=== PATIENT | male | born 1970 | race Two or more races ===

== ENCOUNTER 2022-01-26 21:08 | Inpatient (IN) | payer MEDICAID, OTHER ==
[~2022-01-26] VITALS: Ht 175.3 cm; Wt 113.5 kg
[2022-01-26] MEDS ORDERED: FUROSEMIDE 100 MG/10ML VIAL IV ONE (22:30)
[2022-01-26 22:44] LABS: Basophils # (auto) 0.2 10 ^3/uL (0-0.2); Basophils % (auto) 2.4 % (0.0-2.0); Eosinophils # (auto) 0.1 10 ^3/uL (0-0.8); Hematocrit 34.4 % (41.0-53.0); Hemoglobin 11.8 g/dL (13.5-17.5); Lymphocytes # (auto) 1.1 10 ^3/uL (0.4-5.4); Lymphocytes % (auto) 14.7 % (10.0-50.0); Mean Corpuscular Hemoglobin 29.7 pg (28.0-32.0); Mean Corpuscular Hgb Conc. 34.2 g/dL (32.0-36.0); Mean Corpuscular Volume 86.9 fL (80.0-100.0); Monocytes # (auto) 0.4 10 ^3/uL (0-1.3); Monocytes % (auto) 5.9 % (0.0-12.0); Neutrophils # (auto) 5.7 10 ^3/uL (1.6-8.6); Red Blood Cells 3.96 10^6/uL (4.5-5.90); Red Cell Distribution Width 14.4 % (11.8-14.3); White Blood Cell 7.5 10^3/uL (4.4-10.8)
[2022-01-26 23:08] LABS: Albumin 3.2 g/dL (3.4-5.0); BUN/Creatinine Ratio 16.2; Calcium 8.5 mg/dL (8.5-10.1); Magnesium 2.5 mg/dL (1.6-2.6); Potassium 4.2 mmol/L (3.5-5.1)
[2022-01-26 23:11] LABS: Bilirubin, Total 0.5 mg/dL (0.2-1.0); Total Protein 6.9 g/dL (6.4-8.2)
[2022-01-26 23:15] LABS: INR 1.13 (0.9-1.15); Partial Thromboplastin Time 28.7 sec (23.6-33.0)
[2022-01-27] MEDS ORDERED: ENOXAPARIN SOD 60 MG/0.6 ML SYRINGE SC ONE ×2 (00:15→00:46)
[2022-01-27 01:39] LABS: INR 1.16 (0.9-1.15); Partial Thromboplastin Time 28.5 sec (23.6-33.0)
[2022-01-27 02:13] LABS: Urine WBC None Seen /hpf (0 - 3)
[2022-01-27 03:07] LABS: Urine Bacteria NONE SEEN /hpf (None Seen); Urine Blood Negative /uL (Negative); Urine Specific Gravity 1.004 (1.001-1.035)
[2022-01-27] MEDS ORDERED: ONDANSETRON HCL 4 MG/2 ML VIAL IV PRN (04:00)
[2022-01-27] MEDS ORDERED: MORPHINE SULFATE INJECTION 2 MG/ML SYRG IV PRN ×2 (04:00→04:45)
[2022-01-27] MEDS ORDERED: ACETAMINOPHEN 325 MG TAB PO PRN (04:00)
[2022-01-27] MEDS ORDERED: HYDROcodone-ACET 5/325MG TAB PO PRN (04:00)
[2022-01-27] MEDS ORDERED: DOCUSATE SOD 100 MG CAP PO PRN (04:00)
[2022-01-27] MEDS ORDERED: NITROGLYCERIN 0.4 MG SL TAB SL PRN (04:45)
[2022-01-27 05:27] LABS: Basophils # (auto) 0.1 10 ^3/uL (0-0.2); Eosinophils # (auto) 0.1 10 ^3/uL (0-0.8); Eosinophils % (auto) 1.5 % (0.0-7.0); Hemoglobin 11.7 g/dL (13.5-17.5); Lymphocytes # (auto) 1.5 10 ^3/uL (0.4-5.4); Lymphocytes % (auto) 22.6 % (10.0-50.0); Mean Corpuscular Hemoglobin 29.5 pg (28.0-32.0); Mean Corpuscular Hgb Conc. 34.3 g/dL (32.0-36.0); Monocytes # (auto) 0.6 10 ^3/uL (0-1.3); Monocytes % (auto) 8.2 % (0.0-12.0); Neutrophils # (auto) 4.6 10 ^3/uL (1.6-8.6); Neutrophils % (auto) 66.7 % (37.0-80.0); Red Blood Cells 3.96 10^6/uL (4.5-5.90); Red Cell Distribution Width 14.6 % (11.8-14.3); White Blood Cell 6.8 10^3/uL (4.4-10.8)
[2022-01-27 05:41] LABS: Calcium 8.2 mg/dL (8.5-10.1); Potassium 3.7 mmol/L (3.5-5.1)
[2022-01-27 05:46] LABS: BUN/Creatinine Ratio 17.1; Bilirubin, Total 0.7 mg/dL (0.2-1.0); Total Protein 6.8 g/dL (6.4-8.2)
[2022-01-27] MEDS: SODIUM CHLOR 0.9% PF (SALINE LOCK) 10ML VIAL/SYR IV SCH ×3 (06:07→21:49)
[2022-01-27] MEDS: HEPARIN SODIUM (PORCINE) 5000 UNITS/ML 1ML VIAL SC SCH ×3 (07:18→21:51)
[2022-01-27 08:49] VITALS: BP 116/72
[2022-01-27] MEDS: ASPirin 81 mg TAB PO SCH (10:05)
[2022-01-27] MEDS: FAMOTIDINE (10MG/ML) 2ML VL IV SCH ×2 (10:05→21:49)
[2022-01-27] MEDS: FUROSEMIDE 40 MG/4 ML VIAL IV SCH (10:05)
[2022-01-27] MEDS: CARVEDILOL 3.125 MG TAB PO SCH ×2 (10:06→21:50)
[2022-01-27 13:00] VITALS: BP 101/70
[2022-01-27 16:42] VITALS: BP 114/76
[2022-01-27 21:11] VITALS: BP 122/79
[2022-01-27] MEDS: ATORVASTATIN 20 MG TAB PO SCH (21:50)
[2022-01-28 05:15] VITALS: BP 117/74
[2022-01-28 05:31] LABS: Basophils # (auto) 0.1 10 ^3/uL (0-0.2); Basophils % (auto) 0.9 % (0.0-2.0); Eosinophils # (auto) 0.2 10 ^3/uL (0-0.8); Eosinophils % (auto) 2.9 % (0.0-7.0); Hematocrit 38.1 % (41.0-53.0); Hemoglobin 12.8 g/dL (13.5-17.5); Lymphocytes # (auto) 1.7 10 ^3/uL (0.4-5.4); Lymphocytes % (auto) 23.3 % (10.0-50.0); Mean Corpuscular Hemoglobin 29.3 pg (28.0-32.0); Mean Corpuscular Hgb Conc. 33.8 g/dL (32.0-36.0); Mean Corpuscular Volume 86.7 fL (80.0-100.0); Monocytes # (auto) 0.5 10 ^3/uL (0-1.3); Monocytes % (auto) 6.5 % (0.0-12.0); Neutrophils # (auto) 4.9 10 ^3/uL (1.6-8.6); Neutrophils % (auto) 66.4 % (37.0-80.0); Red Blood Cells 4.39 10^6/uL (4.5-5.90); Red Cell Distribution Width 14.5 % (11.8-14.3); White Blood Cell 7.4 10^3/uL (4.4-10.8)
[2022-01-28 05:50] LABS: Potassium 4.4 mmol/L (3.5-5.1)
[2022-01-28] MEDS: HEPARIN SODIUM (PORCINE) 5000 UNITS/ML 1ML VIAL SC SCH (06:00)
[2022-01-28 06:04] LABS: Albumin 3.1 g/dL (3.4-5.0); BUN/Creatinine Ratio 19.1; Bilirubin, Total 0.6 mg/dL (0.2-1.0); Calcium 9.1 mg/dL (8.5-10.1); Total Protein 7.8 g/dL (6.4-8.2)
[2022-01-28] MEDS: SODIUM CHLOR 0.9% PF (SALINE LOCK) 10ML VIAL/SYR IV SCH ×3 (06:43→21:51)
[2022-01-28 08:30] VITALS: BP 122/88
[2022-01-28] MEDS: FUROSEMIDE 40 MG/4 ML VIAL IV SCH (10:00)
[2022-01-28] MEDS ORDERED: IOHEXOL 350 MG/ML 100ML IJ ONE (10:35)
[2022-01-28] MEDS ORDERED: LIDOCAINE 2%HCL (LOCAL ANESTH.) INJ 10ml MDV ONE (10:35)
[2022-01-28] MEDS ORDERED: SODIUM CHL 0.9% 0 ML ONE (10:48)
[2022-01-28] MEDS: CARVEDILOL 3.125 MG TAB PO SCH ×2 (10:48→21:51)
[2022-01-28] MEDS ORDERED: ANGIOMAX 250 MG VIAL IV ONE (10:48)
[2022-01-28] MEDS: ASPirin 81 mg TAB PO SCH (10:48)
[2022-01-28] MEDS: FAMOTIDINE (10MG/ML) 2ML VL IV SCH ×2 (10:49→21:50)
[2022-01-28 12:30] VITALS: BP 109/81
[2022-01-28 17:00] VITALS: BP 111/78
[2022-01-28] MEDS: APIXABAN 5 MG TAB PO SCH (21:52)
[2022-01-28] MEDS: ATORVASTATIN 20 MG TAB PO SCH (21:53)
[2022-01-28 22:00] VITALS: BP 113/81
[2022-01-29 04:41] VITALS: BP 144/81
[2022-01-29 05:59] LABS: Calcium 8.7 mg/dL (8.5-10.1); Potassium 4.9 mmol/L (3.5-5.1)
[2022-01-29 06:02] LABS: BUN/Creatinine Ratio 18.5; Bilirubin, Total 0.5 mg/dL (0.2-1.0); Total Protein 7.1 g/dL (6.4-8.2)
[2022-01-29 06:13] LABS: Basophils # (auto) 0.1 10 ^3/uL (0-0.2); Basophils % (auto) 0.7 % (0.0-2.0); Eosinophils # (auto) 0.2 10 ^3/uL (0-0.8); Hematocrit 36.7 % (41.0-53.0); Hemoglobin 12.6 g/dL (13.5-17.5); Lymphocytes # (auto) 1.5 10 ^3/uL (0.4-5.4); Lymphocytes % (auto) 17.5 % (10.0-50.0); Mean Corpuscular Hemoglobin 29.8 pg (28.0-32.0); Mean Corpuscular Hgb Conc. 34.4 g/dL (32.0-36.0); Mean Corpuscular Volume 86.6 fL (80.0-100.0); Monocytes # (auto) 0.5 10 ^3/uL (0-1.3); Monocytes % (auto) 5.6 % (0.0-12.0); Neutrophils # (auto) 6.2 10 ^3/uL (1.6-8.6); Neutrophils % (auto) 74.2 % (37.0-80.0); Nucleated Red Blood Cells % 0.1 %; Red Blood Cells 4.24 10^6/uL (4.5-5.90); Red Cell Distribution Width 14.5 % (11.8-14.3); White Blood Cell 8.4 10^3/uL (4.4-10.8)
[2022-01-29] MEDS: SODIUM CHLOR 0.9% PF (SALINE LOCK) 10ML VIAL/SYR IV SCH (06:51)
[2022-01-29 08:30] VITALS: BP 117/88
[2022-01-29] MEDS: FAMOTIDINE (10MG/ML) 2ML VL IV SCH (08:35)
[2022-01-29] MEDS: FUROSEMIDE 40 MG/4 ML VIAL IV SCH (08:35)
[2022-01-29] MEDS: ASPirin 81 mg TAB PO SCH (08:36)
[2022-01-29] MEDS: CARVEDILOL 3.125 MG TAB PO SCH (08:37)
[2022-01-29] MEDS: APIXABAN 5 MG TAB PO SCH (08:37)
[2022-01-29] MEDS ORDERED: SPIRONOLACTONE 25 MG TAB PO SCH (10:00)
[2022-01-29] MEDS ORDERED: LISINOPRIL 5 MG TAB PO SCH (10:00)
[2022-01-29] MEDS ORDERED: APIX5TAB PO (10:22)
[2022-01-29] MEDS ORDERED: ASPI1CHW15 PO (10:22)
[2022-01-29] MEDS ORDERED: ATOR20TA50 PO (10:22)
[2022-01-29] MEDS ORDERED: SPIR25TA PO (10:22)
[2022-01-29] MEDS ORDERED: CAR3125T PO (10:22)
[2022-01-29] MEDS ORDERED: LISI-275 PO (10:22)
[2022-01-29 12:27] VITALS: BP 103/74
[2022-01-29 12:30] VITALS: BP 103/74
== END 2022-01-29 13:30 | disposition home or self-care (01) | DRG 190 ==
LOC: ER 21:13 → TELE 01-27 04:38 → TELE-EAST 01-27 07:03
PROVIDERS: ADMIT Nurse Practitioner Family; ATTEND Internal Medicine Pulmonary Disease
PROC: B211YZZ Fluoroscopy of Multiple Coronary Arteries using Other Contrast (ICD-10-PCS; principal; 2022-01-28)
DX: I21.4 Non-ST elevation (NSTEMI) myocardial infarction (principal); N17.9 Acute kidney failure, unspecified; E46 Unspecified protein-calorie malnutrition; I11.0 Hypertensive heart disease with heart failure; I50.20 Unspecified systolic (congestive) heart failure; E66.9 Obesity, unspecified; E78.5 Hyperlipidemia, unspecified; I25.5 Ischemic cardiomyopathy; R79.89 Other specified abnormal findings of blood chemistry; Z20.822 Contact with and (suspected) exposure to COVID-19; Z68.37 Body mass index [BMI] 37.0-37.9, adult; Z71.3 Dietary counseling and surveillance
CPT/HCPCS: 36415; 71045; 80053; 80061; 81001; 83735; 83880; 84484; 85025; 85610; 85730; 86850; 86900; 86901; 93005; 93306; 93458; 96372; 96374; 99152; G0378; J2001; J3490

== ENCOUNTER 2022-02-06 12:13 | Inpatient (IN) | payer MEDICAID ==
[~2022-02-06] VITALS: Ht 175.3 cm; Wt 107.0 kg
[~2022-02-06 12:13] MED LIST: APIX5TAB PO; ASPI1CHW15 PO; ATOR20TA50 PO; CAR3125T PO; LISI-275 PO; SPIR25TA PO
[2022-02-06] MEDS ORDERED: AMIODARONE HCL 300 MG in D5W 5% 100 ML IV ONE (12:30)
[2022-02-06] MEDS ORDERED: MAGNESIUM SULFATE 1GM/100ML 100 ML IV ONE (12:30)
[2022-02-06] MEDS ORDERED: AMIODARONE 450mg/250ml AE 250 ML IV ONE (12:35)
[2022-02-06] MEDS ORDERED: DOBUTamine 1000MCG/ML 250 ML IV ONE ×2 (12:45→12:46)
[2022-02-06] MEDS ORDERED: AMIODARONE 450mg/250ml AE 250 ML IV SCH (12:45)
[2022-02-06 12:51] LABS: Basophils # (auto) 0.1 10 ^3/uL (0-0.2); Eosinophils # (auto) 0.3 10 ^3/uL (0-0.8); Eosinophils % (auto) 2.4 % (0.0-7.0); Monocytes # (auto) 0.6 10 ^3/uL (0-1.3)
[2022-02-06 12:52] LABS: Basophils % (auto) 1.2 % (0.0-2.0); Hematocrit 41.7 % (41.0-53.0); Hemoglobin 13.9 g/dL (13.5-17.5); Lymphocytes # (auto) 3.3 10 ^3/uL (0.4-5.4); Lymphocytes % (auto) 30.6 % (10.0-50.0); Mean Corpuscular Hemoglobin 28.9 pg (28.0-32.0); Mean Corpuscular Hgb Conc. 33.3 g/dL (32.0-36.0); Monocytes % (auto) 5.2 % (0.0-12.0); Neutrophils # (auto) 6.5 10 ^3/uL (1.6-8.6); Neutrophils % (auto) 60.6 % (37.0-80.0); Nucleated Red Blood Cells % 0.2 %; Red Blood Cells 4.79 10^6/uL (4.5-5.90); Red Cell Distribution Width 14.9 % (11.8-14.3); White Blood Cell 10.8 10^3/uL (4.4-10.8)
[2022-02-06] MEDS ORDERED: MIDAZOLAM HCL 5 MG/ML-1ML VIAL ONE (12:52)
[2022-02-06] MEDS ORDERED: MIDAZOLAM HCL 2MG/2ML 2ml VIAL (1mg/ml) IV ONE ×2 (13:00→13:05)
[2022-02-06] MEDS ORDERED: MIDAZOLAM HCL 5 MG/ML-1ML VIAL IV ONE (13:00)
[2022-02-06 13:08] LABS: INR 1.1 (0.9-1.15); Partial Thromboplastin Time 24.8 sec (23.6-33.0)
[2022-02-06] MEDS ORDERED: DOPamine 1600MCG/ML D5W 250 ML IV SCH (13:10)
[2022-02-06] MEDS ORDERED: FUROSEMIDE 40 MG/4 ML VIAL ONE (13:12)
[2022-02-06] MEDS ORDERED: FUROSEMIDE 40 MG/4 ML VIAL IV ONE (13:12)
[2022-02-06] MEDS ORDERED: NITROGLYCERIN 50MG/250ML 250 ML IV ONE ×2 (13:20→13:30)
[2022-02-06] MEDS ORDERED: NITROGLYCERIN 0.4 MG SL TAB SL ONE ×2 (13:20→13:30)
[2022-02-06] MEDS ORDERED: NITROGLYCERIN 0.4 MG SL TAB SL PRN ×2 (14:00→14:15)
[2022-02-06] MEDS ORDERED: MORPHINE SULFATE INJ 2 MG/ml SYRG IV PRN ×2 (14:00→14:15)
[2022-02-06] MEDS ORDERED: ONDANSETRON HCL 4 MG/2 ML VIAL IV ONE (14:30)
[2022-02-06 15:11] LABS: Albumin 3.3 g/dL (3.4-5.0); Calcium 9.2 mg/dL (8.5-10.1); Potassium 4.5 mmol/L (3.5-5.1)
[2022-02-06 15:16] LABS: BUN/Creatinine Ratio 14.6; Bilirubin, Total 0.4 mg/dL (0.2-1.0); Total Protein 7.9 g/dL (6.4-8.2)
[2022-02-06] MEDS: PHENYLEPHRINE INJ 40 MG in SODIUM CHL 0.9% 246 ML IV SCH (15:49)
[2022-02-06 16:13] LABS: Lactic Acid w/Reflex 2.2 mmol/L (0.4-2.0)
[2022-02-06] MEDS ORDERED: DOBUTamine 1000MCG/ML 250 ML IV SCH (17:15)
[2022-02-06] MEDS ORDERED: AMIODARONE HCL (50 MG/ ML) 3 ML VIAL IV ONE (17:59)
[2022-02-06] MEDS ORDERED: D5W 5% 100 ML MINI BAG IV ONE (17:59)
[2022-02-06] MEDS ORDERED: DOPamine 1600mCg/ml 400MG/250ml NSorD5 KIT/BAG IV ONE (17:59)
[2022-02-06] MEDS: NOREPINEPHRINE 8 MG/250ML KIT 250 ML IV SCH (18:36)
[2022-02-06] MEDS ORDERED: ONDANSETRON HCL 4 MG/2 ML VIAL IV PRN (20:45)
[2022-02-06] MEDS: AMIODARONE HCL 200 MG TAB PO SCH (22:00)
[2022-02-06] MEDS ORDERED: HEPARIN SODIUM (PORCINE) 5000 UNITS/ML 1ML VIAL IV ONE (23:30)
[2022-02-06] MEDS: HEPARIN DRIP/D5W 100UNITS/ML 250 ML IV SCH (23:30)
[2022-02-07] VITALS (40 sets, daily range): BP systolic 87–112; BP diastolic 51–71
[2022-02-07 00:45] LABS: Mean Corpuscular Volume 86.6 fL (80.0-100.0)
[2022-02-07 00:47] LABS: Hematocrit 40.3 % (41.0-53.0); Hemoglobin 13.5 g/dL (13.5-17.5); Mean Corpuscular Hgb Conc. 33.5 g/dL (32.0-36.0); Red Blood Cells 4.65 10^6/uL (4.5-5.90); Red Cell Distribution Width 14.7 % (11.8-14.3); White Blood Cell 25.6 10^3/uL (4.4-10.8)
[2022-02-07 00:55] LABS: Basophils % (manual) 0 (0.0-2.0); Blast Cells 0; Eosinophils % (manual) 0 (0-7); Metamyelocytes % 0; Myelocytes % 0; Promyelocytes % 0; Reactive Lymphocytes 0
[2022-02-07 01:01] LABS: INR 1.16 (0.9-1.15); Partial Thromboplastin Time 27.6 sec (23.6-33.0)
[2022-02-07 01:29] LABS: Band Neutrophils % (manual) 9; Lymphocytes % (manual) 4 (10.0-50.0); Monocytes % (manual) 3 (0-12)
[2022-02-07 05:13] LABS: Basophils # (auto) 0.1 10 ^3/uL (0-0.2); Basophils % (auto) 0.6 % (0.0-2.0); Eosinophils # (auto) 0 10 ^3/uL (0-0.8); Hematocrit 36.4 % (41.0-53.0); Hemoglobin 12.4 g/dL (13.5-17.5); Lymphocytes # (auto) 1.7 10 ^3/uL (0.4-5.4); Lymphocytes % (auto) 8.8 % (10.0-50.0); Mean Corpuscular Hemoglobin 29.2 pg (28.0-32.0); Mean Corpuscular Volume 85.9 fL (80.0-100.0); Monocytes # (auto) 0.6 10 ^3/uL (0-1.3); Neutrophils # (auto) 17.1 10 ^3/uL (1.6-8.6); Neutrophils % (auto) 87.6 % (37.0-80.0); Red Blood Cells 4.24 10^6/uL (4.5-5.90); Red Cell Distribution Width 14.8 % (11.8-14.3); White Blood Cell 19.5 10^3/uL (4.4-10.8)
[2022-02-07 05:31] LABS: INR 1.21 (0.9-1.15); Partial Thromboplastin Time 36.7 sec (23.6-33.0)
[2022-02-07 05:32] LABS: BUN/Creatinine Ratio 16.7; Calcium 8.5 mg/dL (8.5-10.1); Potassium 4.6 mmol/L (3.5-5.1)
[2022-02-07] MEDS ORDERED: ONDANSETRON HCL 4 MG/2 ML VIAL IV PRN (06:30)
[2022-02-07] MEDS ORDERED: hydrALAZINE HCL 20 MG/ML VL IV PRN (06:30)
[2022-02-07] MEDS ORDERED: LORazepam 2MG/ML-1ML VIAL IV PRN (06:30)
[2022-02-07] MEDS ORDERED: DOCUSATE SOD 100 MG CAP PO PRN (06:30)
[2022-02-07] MEDS ORDERED: MORPHINE SULFATE INJ 2 MG/ml SYRG IV PRN (06:30)
[2022-02-07] MEDS: PHENYLEPHRINE INJ 40 MG in SODIUM CHL 0.9% 246 ML IV SCH (06:40)
[2022-02-07 06:48] LABS: Magnesium 2.1 mg/dL (1.6-2.6); Phosphorus 4.4 mg/dL (2.5-4.90)
[2022-02-07] MEDS ORDERED: METOPROLOL SUCCINATE XL 50 MG TAB PO ONE (07:15)
[2022-02-07] MEDS: cefTRIAXone 1GM/50ML D5W 50 ML IV SCH (09:17)
[2022-02-07] MEDS ORDERED: METOPROLOL SUCCINATE XL 50 MG TAB PO SCH (10:00)
[2022-02-07] MEDS: PANTOPRAZOLE 40 MG/10 ML VIAL INJ IV SCH (10:27)
[2022-02-07] MEDS: AMIODARONE HCL 200 MG TAB PO SCH ×2 (10:27→20:38)
[2022-02-07 14:43] LABS: INR 1.24 (0.9-1.15)
[2022-02-07] MEDS: CLINDAMYCIN 600MG IV 50 ML IV SCH ×2 (15:16→20:36)
[2022-02-07] MEDS ORDERED: HEPARIN SODIUM (PORCINE) 5000 UNITS/ML 1ML VIAL IV ONE (16:15)
[2022-02-07] MEDS: NOREPINEPHRINE 8 MG/250ML KIT 250 ML IV SCH (17:10)
[2022-02-07] MEDS: FUROSEMIDE 20 MG/2 ML VIAL IV SCH (18:25)
[2022-02-07] MEDS: HEPARIN DRIP/D5W 100UNITS/ML 250 ML IV SCH (19:13)
[2022-02-07] MEDS: ATORVASTATIN 20 MG TAB PO SCH (20:38)
[2022-02-07 22:50] LABS: INR 1.25 (0.9-1.15); Partial Thromboplastin Time 47.7 sec (23.6-33.0)
[2022-02-08] VITALS (71 sets, daily range): BP systolic 92–117; BP diastolic 50–75
[2022-02-08] MEDS: FUROSEMIDE 20 MG/2 ML VIAL IV SCH ×2 (04:40→17:30)
[2022-02-08] MEDS: CLINDAMYCIN 600MG IV 50 ML IV SCH ×3 (04:41→21:22)
[2022-02-08 05:02] LABS: Basophils # (auto) 0.1 10 ^3/uL (0-0.2); Basophils % (auto) 0.7 % (0.0-2.0); Eosinophils # (auto) 0.2 10 ^3/uL (0-0.8); Eosinophils % (auto) 1.5 % (0.0-7.0); Hematocrit 35.1 % (41.0-53.0); Hemoglobin 11.7 g/dL (13.5-17.5); Lymphocytes % (auto) 16.4 % (10.0-50.0); Mean Corpuscular Hemoglobin 29.3 pg (28.0-32.0); Mean Corpuscular Hgb Conc. 33.4 g/dL (32.0-36.0); Mean Corpuscular Volume 87.7 fL (80.0-100.0); Monocytes # (auto) 0.8 10 ^3/uL (0-1.3); Monocytes % (auto) 6.5 % (0.0-12.0); Neutrophils # (auto) 8.9 10 ^3/uL (1.6-8.6); Neutrophils % (auto) 74.9 % (37.0-80.0); Nucleated Red Blood Cells % 0.1 %; White Blood Cell 11.9 10^3/uL (4.4-10.8)
[2022-02-08 05:14] LABS: Albumin 2.7 g/dL (3.4-5.0); Calcium 8.5 mg/dL (8.5-10.1); Potassium 4.2 mmol/L (3.5-5.1); Uric Acid 7.5 mg/dL (3.5-7.2)
[2022-02-08 05:22] LABS: INR 1.19 (0.9-1.15)
[2022-02-08 05:23] LABS: BUN/Creatinine Ratio 16.6; Bilirubin, Total 0.6 mg/dL (0.2-1.0); CRP High Sensitivity 11.4 mg/dL (< 0.3); Total Protein 6.7 g/dL (6.4-8.2)
[2022-02-08] MEDS: cefTRIAXone 1GM/50ML D5W 50 ML IV SCH (08:50)
[2022-02-08] MEDS ORDERED: NITROGLYCERIN 0.4MG/HR TOPICAL PATCH TD ONE (10:15)
[2022-02-08] MEDS: PANTOPRAZOLE 40 MG/10 ML VIAL INJ IV SCH (11:45)
[2022-02-08] MEDS: AMIODARONE HCL 200 MG TAB PO SCH ×2 (11:45→21:22)
[2022-02-08] MEDS: PHENYLEPHRINE INJ 40 MG in SODIUM CHL 0.9% 246 ML IV SCH (15:14)
[2022-02-08] MEDS: ATORVASTATIN 20 MG TAB PO SCH (21:21)
[2022-02-09] VITALS (24 sets, daily range): BP systolic 93–120; BP diastolic 48–74
[2022-02-09 05:20] LABS: Basophils # (auto) 0.1 10 ^3/uL (0-0.2); Eosinophils # (auto) 0.2 10 ^3/uL (0-0.8); Eosinophils % (auto) 2.5 % (0.0-7.0); Hematocrit 34.8 % (41.0-53.0); Hemoglobin 11.7 g/dL (13.5-17.5); Lymphocytes # (auto) 1.3 10 ^3/uL (0.4-5.4); Mean Corpuscular Hemoglobin 28.7 pg (28.0-32.0); Mean Corpuscular Hgb Conc. 33.5 g/dL (32.0-36.0); Mean Corpuscular Volume 85.8 fL (80.0-100.0); Monocytes # (auto) 0.5 10 ^3/uL (0-1.3); Monocytes % (auto) 5.9 % (0.0-12.0); Neutrophils # (auto) 7.1 10 ^3/uL (1.6-8.6); Neutrophils % (auto) 76.6 % (37.0-80.0); Red Blood Cells 4.06 10^6/uL (4.5-5.90); Red Cell Distribution Width 14.7 % (11.8-14.3); White Blood Cell 9.2 10^3/uL (4.4-10.8)
[2022-02-09 05:25] LABS: BUN/Creatinine Ratio 21.4; Calcium 8.5 mg/dL (8.5-10.1)
[2022-02-09] MEDS: CLINDAMYCIN 600MG IV 50 ML IV SCH ×2 (05:29→14:11)
[2022-02-09 05:32] LABS: INR 1.09 (0.9-1.15)
[2022-02-09] MEDS: FUROSEMIDE 20 MG/2 ML VIAL IV SCH ×2 (06:31→17:43)
[2022-02-09] MEDS: PHENYLEPHRINE INJ 40 MG in SODIUM CHL 0.9% 246 ML IV SCH (08:40)
[2022-02-09] MEDS: cefTRIAXone 1GM/50ML D5W 50 ML IV SCH (09:08)
[2022-02-09] MEDS: AMIODARONE HCL 200 MG TAB PO SCH ×2 (09:51→21:14)
[2022-02-09] MEDS: ASPirin 81 mg TAB PO SCH (09:51)
[2022-02-09] MEDS ORDERED: NITROGLYCERIN 0.4MG/HR TOPICAL PATCH TD SCH (10:00)
[2022-02-09 13:36] LABS: Urine Bacteria NONE SEEN /hpf (None Seen); Urine Blood 1+ /uL (Negative); Urine Specific Gravity 1.026 (1.001-1.035); Urine WBC 6 /hpf (0 - 3)
[2022-02-09 13:59] LABS: Alcohol, Urine < 3.0 mg/dL (0-10); Amphetamine Screen, Urine NEGATIVE (NEGATIVE); Barbiturate Scree,Urine NEGATIVE (NEGATIVE); Benzodiazephine Screen, Urine NEGATIVE (NEGATIVE); Cannabinoid Screen, Urine NEGATIVE (NEGATIVE); Cocaine Screen, Urine NEGATIVE (NEGATIVE); Opiate Scree,Urine NEGATIVE (NEGATIVE); Phencyclidine Screen, Urine NEGATIVE (NEGATIVE); Protein, Urine 31.6 mg/dL (0.0-11.9)
[2022-02-09] MEDS ORDERED: ENOXAPARIN SOD 120 MG/0.8 ML SYRINGE SC ONE (14:00)
[2022-02-09] MEDS: ENOXAPARIN SOD 120 MG/0.8 ML SYRINGE SC SCH (21:13)
[2022-02-09] MEDS: ATORVASTATIN 20 MG TAB PO SCH (21:13)
[2022-02-10] VITALS (9 sets, daily range): BP systolic 73–130; BP diastolic 43–88
[2022-02-10 05:45] LABS: BUN/Creatinine Ratio 20.7; Calcium 8.6 mg/dL (8.5-10.1); Magnesium 2.1 mg/dL (1.6-2.6); Potassium 4.6 mmol/L (3.5-5.1)
[2022-02-10] MEDS: FUROSEMIDE 20 MG/2 ML VIAL IV SCH ×2 (06:33→17:54)
[2022-02-10] MEDS: cefTRIAXone 1GM/50ML D5W 50 ML IV SCH (08:53)
[2022-02-10] MEDS: ASPirin 81 mg TAB PO SCH (09:05)
[2022-02-10] MEDS: AMIODARONE HCL 200 MG TAB PO SCH ×2 (09:05→22:00)
[2022-02-10] MEDS: ENOXAPARIN SOD 120 MG/0.8 ML SYRINGE SC SCH ×2 (09:06→22:36)
[2022-02-10] MEDS: ATORVASTATIN 20 MG TAB PO SCH (22:36)
[2022-02-11 05:00] VITALS: BP 111/76
[2022-02-11] MEDS: FUROSEMIDE 20 MG/2 ML VIAL IV SCH ×2 (06:02→17:32)
[2022-02-11 06:08] LABS: Calcium 9.1 mg/dL (8.5-10.1); Potassium 3.8 mmol/L (3.5-5.1)
[2022-02-11 08:00] VITALS: BP 113/80
[2022-02-11] MEDS: cefTRIAXone 1GM/50ML D5W 50 ML IV SCH (09:34)
[2022-02-11] MEDS: ASPirin 81 mg TAB PO SCH (09:34)
[2022-02-11] MEDS: AMIODARONE HCL 200 MG TAB PO SCH ×2 (09:34→21:41)
[2022-02-11] MEDS: ENOXAPARIN SOD 120 MG/0.8 ML SYRINGE SC SCH ×2 (09:34→21:42)
[2022-02-11 12:00] VITALS: BP 114/84
[2022-02-11 16:00] VITALS: BP 125/88
[2022-02-11] MEDS: ATORVASTATIN 20 MG TAB PO SCH (21:41)
[2022-02-11 22:00] VITALS: BP 129/84
[2022-02-12 05:00] VITALS: BP 105/75
[2022-02-12] MEDS: FUROSEMIDE 20 MG/2 ML VIAL IV SCH ×2 (06:21→18:35)
[2022-02-12 09:00] VITALS: BP 124/95
[2022-02-12] MEDS: cefTRIAXone 1GM/50ML D5W 50 ML IV SCH (09:38)
[2022-02-12] MEDS: AMIODARONE HCL 200 MG TAB PO SCH ×2 (09:39→22:13)
[2022-02-12] MEDS: ASPirin 81 mg TAB PO SCH (09:39)
[2022-02-12] MEDS: ENOXAPARIN SOD 120 MG/0.8 ML SYRINGE SC SCH ×2 (09:39→22:15)
[2022-02-12 14:00] VITALS: BP 134/80
[2022-02-12 16:58] VITALS: BP 119/83
[2022-02-12 17:00] VITALS: BP 125/90
[2022-02-12 22:00] VITALS: BP 121/75
[2022-02-12] MEDS: ATORVASTATIN 20 MG TAB PO SCH (22:13)
[2022-02-13 05:00] VITALS: BP 94/68
[2022-02-13] MEDS: FUROSEMIDE 20 MG/2 ML VIAL IV SCH (06:00)
[2022-02-13 06:57] LABS: Basophils # (auto) 0.1 10 ^3/uL (0-0.2); Basophils % (auto) 1.4 % (0.0-2.0); Eosinophils # (auto) 0.2 10 ^3/uL (0-0.8); Eosinophils % (auto) 3.3 % (0.0-7.0); Hemoglobin 13.1 g/dL (13.5-17.5); Lymphocytes # (auto) 1.8 10 ^3/uL (0.4-5.4); Mean Corpuscular Hemoglobin 29.6 pg (28.0-32.0); Mean Corpuscular Hgb Conc. 35.3 g/dL (32.0-36.0); Mean Corpuscular Volume 83.8 fL (80.0-100.0); Monocytes # (auto) 0.5 10 ^3/uL (0-1.3); Monocytes % (auto) 7.6 % (0.0-12.0); Neutrophils # (auto) 3.9 10 ^3/uL (1.6-8.6); Neutrophils % (auto) 59.7 % (37.0-80.0); Nucleated Red Blood Cells % 0.1 %; Red Blood Cells 4.42 10^6/uL (4.5-5.90); Red Cell Distribution Width 14.3 % (11.8-14.3); White Blood Cell 6.6 10^3/uL (4.4-10.8)
[2022-02-13 07:01] LABS: Potassium 3.7 mmol/L (3.5-5.1)
[2022-02-13 07:03] LABS: Magnesium 2.3 mg/dL (1.6-2.6)
[2022-02-13 08:05] VITALS: BP 115/85
[2022-02-13] MEDS: ENOXAPARIN SOD 120 MG/0.8 ML SYRINGE SC SCH ×2 (10:00→20:43)
[2022-02-13] MEDS: cefTRIAXone 1GM/50ML D5W 50 ML IV SCH (10:12)
[2022-02-13] MEDS: ASPirin 81 mg TAB PO SCH (10:12)
[2022-02-13] MEDS: AMIODARONE HCL 200 MG TAB PO SCH ×2 (10:13→21:31)
[2022-02-13 12:05] VITALS: BP 109/72
[2022-02-13] MEDS ORDERED: LIDOCAINE 2%HCL (LOCAL ANESTH.) INJ 10ml MDV ONE ×2 (16:42→17:24)
[2022-02-13 16:50] VITALS: BP 149/95
[2022-02-13] MEDS ORDERED: fentaNYL CITRATE 100 MCG/2 ML VL ONE (16:56)
[2022-02-13] MEDS ORDERED: VANCOMYCIN HCL 1000 MG VL ONE (16:56)
[2022-02-13] MEDS ORDERED: MIDAZOLAM HCL 2MG/2ML 2ml VIAL (1mg/ml) ONE (16:57)
[2022-02-13] MEDS ORDERED: VANCOMYCIN 1GM/250ML 250 ML IV ONE (16:57)
[2022-02-13] MEDS ORDERED: HYDROmorphone HCL 2 MG/ML VL/or syr ONE (17:28)
[2022-02-13] MEDS: ATORVASTATIN 20 MG TAB PO SCH (21:30)
[2022-02-13 21:33] VITALS: BP 109/72
[2022-02-14 04:54] VITALS: BP 115/82
[2022-02-14] MEDS: VANCOMYCIN 1GM/250ML 250 ML IV SCH ×2 (05:26→18:00)
[2022-02-14 07:05] LABS: Basophils # (auto) 0.1 10 ^3/uL (0-0.2); Basophils % (auto) 0.8 % (0.0-2.0); Eosinophils # (auto) 0.2 10 ^3/uL (0-0.8); Eosinophils % (auto) 1.9 % (0.0-7.0); Lymphocytes # (auto) 1.5 10 ^3/uL (0.4-5.4); Mean Corpuscular Hemoglobin 29.8 pg (28.0-32.0); Mean Corpuscular Hgb Conc. 34.8 g/dL (32.0-36.0); Mean Corpuscular Volume 85.8 fL (80.0-100.0); Monocytes # (auto) 0.7 10 ^3/uL (0-1.3); Monocytes % (auto) 8.9 % (0.0-12.0); Neutrophils # (auto) 5.6 10 ^3/uL (1.6-8.6); Neutrophils % (auto) 69.4 % (37.0-80.0); Nucleated Red Blood Cells % 0.1 %; Red Blood Cells 4.31 10^6/uL (4.5-5.90); Red Cell Distribution Width 14.6 % (11.8-14.3)
[2022-02-14 07:08] LABS: Hemoglobin 12.9 g/dL (13.5-17.5)
[2022-02-14 07:25] LABS: Potassium 4.1 mmol/L (3.5-5.1)
[2022-02-14 07:33] LABS: BUN/Creatinine Ratio 18.2; Calcium 8.6 mg/dL (8.5-10.1)
[2022-02-14] MEDS: cefTRIAXone 1GM/50ML D5W 50 ML IV SCH (08:27)
[2022-02-14 08:58] VITALS: BP 120/60
[2022-02-14] MEDS ORDERED: FUROSEMIDE 20 MG TAB PO SCH (10:00)
[2022-02-14] MEDS: ASPirin 81 mg TAB PO SCH (11:43)
[2022-02-14] MEDS: AMIODARONE HCL 200 MG TAB PO SCH (11:44)
[2022-02-14] MEDS: ENOXAPARIN SOD 120 MG/0.8 ML SYRINGE SC SCH (11:45)
[2022-02-14 13:00] VITALS: BP_SYST 108; BP_SYST 136; BP_DIAS 81
[2022-02-14] MEDS ORDERED: FURO1TAB33 PO (14:34)
[2022-02-14] MEDS ORDERED: AMIO200T33 PO (14:34)
[2022-02-14] MEDS ORDERED: DOXY-286 PO (14:34)
[2022-02-14 17:00] VITALS: BP 103/65
[2022-02-14 17:01] VITALS: BP 111/65
== END 2022-02-14 18:30 | disposition home or self-care (01) | DRG 179 ==
LOC: ER 12:13 → OVERFLOW 14:03 → ICU CENTRL 02-07 07:37 → OVERFLOW 02-07 09:12 → DOU IN ICU 02-07 13:10 → ICU CENTRL 02-08 04:25 → TELE 02-09 09:32 → ICU CENTRL 02-09 09:33 → TELE 02-09 15:27 → ICU CENTRL 02-09 15:30 → TELE-CENTR 02-10 05:18
PROVIDERS: ADMIT Hospitalist; ATTEND Internal Medicine
PROC: 5A2204Z Restoration of Cardiac Rhythm, Single (ICD-10-PCS; 2022-02-06)
PROC: 02H63KZ Insertion of Defibrillator Lead into Right Atrium, Percutaneous Approach (ICD-10-PCS; principal; 2022-02-13)
PROC: 0JH608Z Insertion of Defibrillator Generator into Chest Subcutaneous Tissue and Fascia, Open Approach (ICD-10-PCS; 2022-02-13)
PROC: 02HK3KZ Insertion of Defibrillator Lead into Right Ventricle, Percutaneous Approach (ICD-10-PCS; 2022-02-13)
DX: I21.4 Non-ST elevation (NSTEMI) myocardial infarction (principal); J96.01 Acute respiratory failure with hypoxia; N17.0 Acute kidney failure with tubular necrosis; R57.0 Cardiogenic shock; I50.23 Acute on chronic systolic (congestive) heart failure; R65.10 Systemic inflammatory response syndrome (SIRS) of non-infectious origin without acute organ dysfunction; I13.0 Hypertensive heart and chronic kidney disease with heart failure and stage 1 through stage 4 chronic kidney disease, or unspecified chronic kidney disease; I27.20 Pulmonary hypertension, unspecified; I47.2 Ventricular tachycardia; I82.411 Acute embolism and thrombosis of right femoral vein; I42.0 Dilated cardiomyopathy; E66.01 Morbid (severe) obesity due to excess calories; E78.2 Mixed hyperlipidemia; N18.31 Chronic kidney disease, stage 3a; D72.829 Elevated white blood cell count, unspecified; I25.10 Atherosclerotic heart disease of native coronary artery without angina pectoris; I34.0 Nonrheumatic mitral (valve) insufficiency; I25.2 Old myocardial infarction; Z68.35 Body mass index [BMI] 35.0-35.9, adult
CPT/HCPCS: 33249; 36415; 36600; 71045; 80048; 80053; 80061; 80307; 81001; 82550; 82728; 82805; 83036; 83605; 83615; 83690; 83735; 83880; 84100; 84132; 84156; 84443; 84484; 84550; 85007; 85025; 85027; 85379; 85610; 85652; 85730; 86141; 87040; 87081; 93005; 93970; 96365; 96367; 96368; 96375; 96376; 97163; 99152; 99153; 99291; C9113; G0378; J0696; J2001; J2250; J2405; J3490; J7060

== ENCOUNTER 2022-03-25 08:30 | Inpatient (IN) | payer MEDICAID ==
[~2022-03-25] VITALS: Ht 175.3 cm; Wt 108.9 kg
[~2022-03-25 08:30] MED LIST changes: +DOXY-286 PO; -SPIR25TA PO
[2022-03-25] MEDS ORDERED: NITROGLYCERIN 0.4 MG SL TAB SL ONE (08:45)
[2022-03-25] MEDS ORDERED: FUROSEMIDE 40 MG/4 ML VIAL IV ONE (08:45)
[2022-03-25 09:46] LABS: Albumin 3.7 g/dL (3.4-5.0); BUN/Creatinine Ratio 13.9; Calcium 8.1 mg/dL (8.5-10.1); Magnesium 2.8 mg/dL (1.6-2.6); Potassium 4.2 mmol/L (3.5-5.1)
[2022-03-25 09:49] LABS: Bilirubin, Total 0.3 mg/dL (0.2-1.0); Total Protein 8.4 g/dL (6.4-8.2)
[2022-03-25 09:56] LABS: Lactic Acid w/Reflex 4.5 mmol/L (0.4-2.0)
[2022-03-25] MEDS ORDERED: ACETAMINOPHEN 325 MG TAB PO PRN (10:45)
[2022-03-25] MEDS ORDERED: MORPHINE SULFATE INJ 2 MG/ml SYRG IV PRN ×2 (10:45)
[2022-03-25] MEDS ORDERED: NITROGLYCERIN 0.4 MG SL TAB SL PRN (10:45)
[2022-03-25] MEDS ORDERED: ONDANSETRON HCL 4 MG/2 ML VIAL IV PRN (10:45)
[2022-03-25] MEDS ORDERED: HYDROcodone-ACET 5/325MG TAB PO PRN (10:45)
[2022-03-25 10:57] LABS: Basophils # (auto) 0.1 10 ^3/uL (0-0.2); Basophils % (auto) 0.6 % (0.0-2.0); Eosinophils # (auto) 0.3 10 ^3/uL (0-0.8); Eosinophils % (auto) 2.1 % (0.0-7.0); Hemoglobin 15.1 g/dL (13.5-17.5); Lymphocytes % (auto) 41.7 % (10.0-50.0); Mean Corpuscular Hemoglobin 28.9 pg (28.0-32.0); Mean Corpuscular Hgb Conc. 32.2 g/dL (32.0-36.0); Mean Corpuscular Volume 89.8 fL (80.0-100.0); Monocytes # (auto) 0.5 10 ^3/uL (0-1.3); Monocytes % (auto) 4.2 % (0.0-12.0); Neutrophils # (auto) 6.2 10 ^3/uL (1.6-8.6); Neutrophils % (auto) 51.4 % (37.0-80.0); Nucleated Red Blood Cells % 0.1 %; Red Blood Cells 5.24 10^6/uL (4.5-5.90); Red Cell Distribution Width 16.3 % (11.8-14.3)
[2022-03-25] MEDS: FUROSEMIDE 40 MG/4 ML VIAL IV SCH (18:10)
[2022-03-25 19:45] VITALS: BP 123/55
[2022-03-25] MEDS: CARVEDILOL 3.125 MG TAB PO SCH (21:36)
[2022-03-25] MEDS: APIXABAN 5 MG TAB PO SCH (21:36)
[2022-03-25] MEDS ORDERED: ATORVASTATIN 20 MG TAB PO SCH (22:00)
[2022-03-26 05:00] VITALS: BP 103/60
[2022-03-26] MEDS: FUROSEMIDE 40 MG/4 ML VIAL IV SCH ×2 (05:47→18:44)
[2022-03-26 07:04] LABS: Basophils # (auto) 0.1 10 ^3/uL (0-0.2); Eosinophils # (auto) 0.1 10 ^3/uL (0-0.8); Eosinophils % (auto) 1.9 % (0.0-7.0); Hematocrit 41.4 % (41.0-53.0); Hemoglobin 13.9 g/dL (13.5-17.5); Lymphocytes # (auto) 1.8 10 ^3/uL (0.4-5.4); Lymphocytes % (auto) 23.1 % (10.0-50.0); Mean Corpuscular Hgb Conc. 33.4 g/dL (32.0-36.0); Mean Corpuscular Volume 86.8 fL (80.0-100.0); Monocytes # (auto) 0.5 10 ^3/uL (0-1.3); Neutrophils # (auto) 5.1 10 ^3/uL (1.6-8.6); Red Blood Cells 4.77 10^6/uL (4.5-5.90); White Blood Cell 7.6 10^3/uL (4.4-10.8)
[2022-03-26 07:21] LABS: Albumin 3.3 g/dL (3.4-5.0); Calcium 7.9 mg/dL (8.5-10.1); Potassium 3.9 mmol/L (3.5-5.1)
[2022-03-26 07:25] LABS: BUN/Creatinine Ratio 16.8; Bilirubin, Total 0.7 mg/dL (0.2-1.0); Total Protein 6.8 g/dL (6.4-8.2)
[2022-03-26 09:00] VITALS: BP_SYST 11; BP_SYST 118; BP_DIAS 81
[2022-03-26] MEDS ORDERED: PATIENTS OWN MEDICATION (Aspirin (Aspirin Low Strength) 81 MG) PO SCH (10:00)
[2022-03-26] MEDS ORDERED: LISINOPRIL 5 MG TAB PO SCH (10:00)
[2022-03-26] MEDS ORDERED: ASPirin-EC 81 mg tab PO SCH (10:00)
[2022-03-26] MEDS: CARVEDILOL 3.125 MG TAB PO SCH (11:00)
[2022-03-26] MEDS: APIXABAN 5 MG TAB PO SCH (11:01)
[2022-03-26] MEDS ORDERED: FURO1TAB31 PO (11:18)
[2022-03-26 13:00] VITALS: BP 127/85
[2022-03-26 17:59] VITALS: BP 118/81
== END 2022-03-26 19:20 | disposition home or self-care (01) | DRG 133 ==
LOC: ER 08:30 → TELE 10:44 → TELE-EAST 19:45
PROVIDERS: ADMIT Internal Medicine; ATTEND Internal Medicine
PROC: 5A09357 Assistance with Respiratory Ventilation, Less than 24 Consecutive Hours, Continuous Positive Airway Pressure (ICD-10-PCS; principal; 2022-03-25)
DX: J96.01 Acute respiratory failure with hypoxia (principal); I50.23 Acute on chronic systolic (congestive) heart failure; I47.2 Ventricular tachycardia; I24.8 Other forms of acute ischemic heart disease; E87.2 Acidosis; I27.20 Pulmonary hypertension, unspecified; I11.0 Hypertensive heart disease with heart failure; E66.01 Morbid (severe) obesity due to excess calories; I25.5 Ischemic cardiomyopathy; Z20.822 Contact with and (suspected) exposure to COVID-19; I16.9 Hypertensive crisis, unspecified; I25.10 Atherosclerotic heart disease of native coronary artery without angina pectoris; D72.829 Elevated white blood cell count, unspecified; Z68.35 Body mass index [BMI] 35.0-35.9, adult; Z95.810 Presence of automatic (implantable) cardiac defibrillator; Z86.718 Personal history of other venous thrombosis and embolism
CPT/HCPCS: 36415; 36600; 71045; 80053; 82805; 82962; 83036; 83605; 83735; 83880; 84484; 85025; 85379; 87040; 93005; 94660; 96374; 99291; G0378

== ENCOUNTER 2022-04-09 06:48 | Emergency (ER) | payer MEDICAID ==
[~2022-04-09] VITALS: Ht 172.7 cm; Wt 107.5 kg
[~2022-04-09 06:48] MED LIST changes: -DOXY-286 PO; +FURO1TAB31 PO
[2022-04-09] MEDS ORDERED: cloNIDine HCL 0.1 MG TAB PO ONE (08:00)
[2022-04-09 09:17] LABS: Basophils # (auto) 0.1 10 ^3/uL (0-0.2); Basophils % (auto) 0.8 % (0.0-2.0); Eosinophils # (auto) 0.1 10 ^3/uL (0-0.8); Eosinophils % (auto) 1.8 % (0.0-7.0); Hematocrit 42.5 % (41.0-53.0); Hemoglobin 13.9 g/dL (13.5-17.5); Lymphocytes # (auto) 1.5 10 ^3/uL (0.4-5.4); Lymphocytes % (auto) 19.9 % (10.0-50.0); Mean Corpuscular Hemoglobin 28.3 pg (28.0-32.0); Mean Corpuscular Hgb Conc. 32.6 g/dL (32.0-36.0); Mean Corpuscular Volume 86.9 fL (80.0-100.0); Monocytes # (auto) 0.5 10 ^3/uL (0-1.3); Monocytes % (auto) 6.1 % (0.0-12.0); Neutrophils # (auto) 5.5 10 ^3/uL (1.6-8.6); Neutrophils % (auto) 71.4 % (37.0-80.0); Red Blood Cells 4.89 10^6/uL (4.5-5.90); Red Cell Distribution Width 15.6 % (11.8-14.3); White Blood Cell 7.7 10^3/uL (4.4-10.8)
[2022-04-09 09:30] LABS: Albumin 3.6 g/dL (3.4-5.0); Calcium 8.8 mg/dL (8.5-10.1); Potassium 4.6 mmol/L (3.5-5.1)
[2022-04-09 09:34] LABS: BUN/Creatinine Ratio 14.6; Bilirubin, Total 0.4 mg/dL (0.2-1.0); Total Protein 7.5 g/dL (6.4-8.2)
[2022-04-09] MEDS ORDERED: FUROSEMIDE 40 MG/4 ML VIAL IV ONE (10:15)
[2022-04-09 11:08] VITALS: BP 114/67
[2022-04-09 12:21] LABS: Urine Bacteria FEW /hpf (None Seen); Urine Blood Negative /uL (Negative); Urine Mucus FEW (None Seen); Urine Specific Gravity 1.021 (1.001-1.035); Urine WBC 1 /hpf (0 - 3)
== END 2022-04-09 11:13 | disposition home or self-care (01) ==
LOC: ER 06:48
DX: I11.0 Hypertensive heart disease with heart failure (principal); I50.9 Heart failure, unspecified; I25.2 Old myocardial infarction; I25.10 Atherosclerotic heart disease of native coronary artery without angina pectoris; Z95.0 Presence of cardiac pacemaker; Z79.82 Long term (current) use of aspirin; Z79.899 Other long term (current) drug therapy; Z20.822 Contact with and (suspected) exposure to COVID-19
CPT/HCPCS: 36415; 80053; 81001; 83880; 84484; 85025; 87426; 93005; 96374; 99284; J1940

== ENCOUNTER → 2022-11-13 | Outpatient (CLI) | payer MEDICAID ==
[~2022-11-13] VITALS: Ht 175.3 cm; Wt 104.3 kg
== END | disposition home or self-care (01) ==
LOC: Rad HDHVI 12:58
PROVIDERS: ATTEND Internal Medicine Cardiovascular Disease
DX: I82.411 Acute embolism and thrombosis of right femoral vein (principal); I11.0 Hypertensive heart disease with heart failure; I50.22 Chronic systolic (congestive) heart failure; I25.5 Ischemic cardiomyopathy; I24.0 Acute coronary thrombosis not resulting in myocardial infarction; I25.2 Old myocardial infarction; Z95.810 Presence of automatic (implantable) cardiac defibrillator
CPT/HCPCS: 78472; 96374; 96375; A9505

== ENCOUNTER 2025-04-06 09:29 | Outpatient (CLI) | payer MEDICAID ==
[~2025-04-06] VITALS: Ht 170.2 cm; Wt 109.8 kg
[~2025-04-06 09:29] MED LIST changes: +ASPI-736 PO; -ASPI1CHW15 PO; -CAR3125T PO; +CARV-214 PO
== END 2025-04-06 17:00 | disposition home or self-care (01) ==
LOC: Rad HDHVI 09:29
PROVIDERS: ATTEND Internal Medicine Cardiovascular Disease
DX: I49.1 Atrial premature depolarization (principal); I49.3 Ventricular premature depolarization; I11.0 Hypertensive heart disease with heart failure; I50.22 Chronic systolic (congestive) heart failure; R00.0 Tachycardia, unspecified; I25.10 Atherosclerotic heart disease of native coronary artery without angina pectoris; I25.2 Old myocardial infarction; I42.0 Dilated cardiomyopathy; I21.4 Non-ST elevation (NSTEMI) myocardial infarction; I49.5 Sick sinus syndrome; E11.9 Type 2 diabetes mellitus without complications; E78.2 Mixed hyperlipidemia; Z82.49 Family history of ischemic heart disease and other diseases of the circulatory system; Z95.0 Presence of cardiac pacemaker
CPT/HCPCS: 78452; 93017; A9500; 96374